=== PATIENT | female | born 1975 | race Caucasian/White ===

== ENCOUNTER 2020-05-27 18:37 | Emergency (ER) | payer OTHER ==
[2020-05-27 18:47] VITALS: BP 148/80; PULSE 75; TEMP 99; BMI 29.7
[2020-05-27 19:16] LABS: HCG,QUALITATIVE URINE Positive
[2020-05-27 19:20] LABS: MEAN PLT VOLUME 8.1 fl (7.5-11.1)
[2020-05-27 19:28] LABS: BASO % 1.4 % (0-2.0); EOS % 2.3 % (0-4.5); HEMATOCRIT 32.6 % (32.4-45.2); HEMOGLOBIN 10.7 GM/dl (10.7-15.3); LYMPH % 24.6 % (8-40); MCH 22.3 pg (25.7-33.7); MCHC 32.8 g/dl (32.0-36.0); MEAN CELL VOLUME 67.9 fl (80-96); MONO % 5.6 % (3.8-10.2); NEUT % 66.1 % (42.8-82.8); PLATELET COUNT 331 K/MM3 (134-434); RDW 18.5 % (11.6-15.6); WHITE BLOOD COUNT 8.9 K/mm3 (4.0-10.8)
[2020-05-27 19:30] LABS: ADD RBC MORPHOLOGY YES
[2020-05-27 19:31] LABS: ALBUMIN 4.1 g/dl (3.4-5.0); BILIRUBIN,TOTAL 0.3 mg/dl (0.2-1); CALCIUM 9.4 mg/dl (8.5-10); CREATININE 0.5 mg/dl (0.55-1.3); POTASSIUM 3.6 mmol/L (3.5-5.1); TOT PROT 6.9 g/dl (6.4-8.2)
--- NOTE | 2020-05-27 19:58 | PDOC ---
Documentation entered by Marcia Pinto SCRIBE, acting as scribe for Yaakov Nam MD. Yaakov Nam MD: This documentation has been prepared by the Blair coffman Ana, SCRIBE, under my direction and personally reviewed by me in its entirety. I confirm that the documentation accurately reflects all work, treatment, procedures, and medical decision making performed by me. History of Present Illness - General Chief Complaint: Vaginal Bleeding Stated Complaint: , VAGINAL BLEEDING Time Seen by Provider: 05/27/20 19:11 History Source: Patient, Significant Other Exam Limitations: Language Barrier - History of Present Illness Initial Comments: 05/27/20 19:15 Patient is a 44 year old 10 week female with no significant past medical history who presents to the ED with vaginal bleeding x4 days. Patient stated she did not know she was until 4 days ago when her vaginal bleeding started and she went to a clinic where they ran a test. Patient said that her vaginal bleeding has gotten worse along with cramping and "passing clots". Patient also endorses cramping. Patient has 3 other kids. Patient denies: any other related symptoms Allergies: NKDA ROS General: No fevers or chills, no weakness, no weight loss HEENT: No change in vision. No sore throat,. No ear pain CardioVascular: No chest pain or shortness of breath Respiratory: No cough, or wheezing. Gastrointestinal: no nausea, vomiting, diarrhea or constipation, No rectal bleeding Genitourinary: +Vaginal bleeding. No dysuria, hematuria, or frequency Musculoskeletal: +Abdominal cramping. No joint or muscle pain or swelling Neurologic: No headache, vertigo, dizziness or loss of consciousness Psychiatric: nor depression Skin: No rashes or easy bruising Endocrine: no increased thirst or abnormal weight change Allergic: no skin or latex allergy All other systems reviewed and normal PE General: Well-nourished well-developed individual, no acute distress Neck: Supple, no meningeal signs, no lymphadenopathy Eyes: Pupils equal reactive and round, extraocular motion intact Abdomen: +Mild tenderness to lower abdomen. Soft, nondistended, normal bowel sounds. No guarding, no rebound. Extremities: Warm, dry, no cyanosis, clubbing, or edema Skin: No rashes Neuro: Alert and oriented x3, nonfocal exam, grossly intact, normal gait Psych: Normal mood and affect OB: Manual exam only. +Mild to moderate amount of red blood. +Left adnexa mild tenderness. Vaginally cervical os closed. No masses. Assessment and plan: This is a 44-year-old female who is 10 weeks by dates. Patient has initially some spotting and now is bleeding heavier with passing of clots. Work-up initiated including CBC, comp, beta hCG quantitative, UA, ultrasound is pending. On my exam ice was closed and patient did have some mild tenderness left adnexa Ultrasound showed no intrauterine . technical services representative reported a moderate amount of bleeding. No evidence of ectopic . And office was open. Patient given ultrasound report and discharged we will follow-up with her OB in the morning. Past History - Medical History Allergies/Adverse Reactions: Allergies Allergy/AdvReac Type Severity Reaction Status Date / Time No Known Allergies Allergy Verified 05/27/20 18:38 Home Medications: Ambulatory Orders NK [No Known Home Medication] 05/27/20 COPD: No - Reproductive History Is Patient Now?: Yes - Psycho-Social/Smoking History Smoking History: Never smoked Have you smoked in the past 12 months: No Information on smoking cessation initiated: No - Substance Abuse Hx (Audit-C & DAST Scrn) How often the patient has a drink containing alcohol: Never Score: In Men: 4 or > Positive; In Women: 3 or > Positive: 0 Screen Result (Pos requires Nsg. Audit-10AR): Negative In the last yr the pt used illegal drug/Rx for NonMed reason: No Score: Yes response is considered Positive: 0 Screen Result (Positive result requires Nsg. DAST-10): Negative Review of Systems - Review of Systems Able to Perform ROS?: Yes Comments:: 05/27/20 19:16 *Physical Exam - Vital Signs Last Vital Signs Temp Pulse Resp BP Pulse Ox 99 F 75 18 148/80 100 05/27/20 18:37 05/27/20 18:37 05/27/20 18:37 05/27/20 18:37 05/27/20 18:37 - Physical Exam 05/27/20 19:17 ED Treatment Course - LABORATORY CBC & Chemistry Diagram: 05/27/20 19:00 05/27/20 18:53 Discharge - Discharge Information Problems reviewed: Yes Clinical Impression/Diagnosis: Spontaneous Condition: Stable Disposition: HOME - Admission No - Follow up/Referral - Patient Discharge Instructions Additional Instructions: As per the ultrasound the office is now open and the is passing out of the uterus. The heavy bleeding should slow down over the course of the next several hours. Call your OB in the morning for follow-up and that your OB no how much her bleeding and how you are doing. Return to the emergency department immediately with ANY new, persistent or worsening symptoms. Continue any medications as previously prescribed by your physician. . Please make sure your doctor reviews the results of your emergency evaluation. Thank you for coming to the Emergency Department today for your care. It was a pleasure to see you today. Please note that your evaluation is INCOMPLETE until you follow-up with your doctor. - Post Discharge Activity
[2020-05-27] MEDS ORDERED: ACETAMINOPHEN 500 MG TABLET (FP) PO ONE (20:50)
[2020-05-27] MEDS ORDERED: ACETAMINOPHEN 500 MG TABLET (FP) ONE (20:51)
[2020-05-27 22:48] LABS: ANISOCYTOSIS 2+; PLATELET ESTIMATE ADEQUATE
== END 2020-05-27 21:10 | disposition home or self-care (01) ==
LOC: FER 18:37 → EDBD 18:37 → FER 21:10
DX: O03.9 Complete or unspecified spontaneous abortion without complication (principal); Z3A.10 10 weeks gestation of pregnancy
CPT/HCPCS: 36415; 76817-TC; 80053; 81003; 81015; 84702; 84703; 85025; 86850; 86900; 86901; 87086; 99284-25